=== PATIENT | female | born 1960 | race Caucasian/White ===

== ENCOUNTER 2019-01-13 09:35 | Day surgery (SDC) | payer SELFPAY ==
[2019-01-11 16:02] VITALS: BMI 26.4
--- NOTE | 2019-01-12 11:20 | HP ---
DATE OF ADMISSION: 01/13/2019 DATE OF DICTATION: 01/12/2019 COMPLAINTS: 1. Abdominal aesthetic deformity. 2. Large breasts. HISTORY: A 58-year-old female requesting abdominal aesthetic procedure for her abdomen and breasts. She has been active, vigilant in controlling her weight as well as regular exercises. For the last 1 year she has been very diligent and at this stage she has reached her maximum weight. She has lost 70 pounds over the last 1 year and is requesting to undergo abdominoplasty as well as breast reduction and a lift. PAST MEDICAL HISTORY: She has history of osteoarthritis, lower back pain. She has been using methotrexate for her recently inflammatory condition which has been diagnosed. Pertinent negatives: She has had unsupervised dieting, but there is no history of vomiting, no history of liposuction, no history of nausea. For osteoarthritis, she has been under care with Dr. Robertson since October 2018, and this is her 4th week where she has been on prednisone when she was seen in the office. Past history relevant for bipolar disorder, hypertension (which has been reduced since her loss of weight and exercise). PAST SURGICAL HISTORY: Positive for appendectomy in the , section x4 (1987, 1988, 1992 and 2001), sigmoid colon resection, colostomy in , gallbladder surgery in 1996 and 1997. MEDICATIONS: Ibuprofen 100 mg chewable, methotrexate 2.5 mg once a day for inflammation, prednisone 2.5 mg once a day. ALLERGIES: LEVAQUIN, BACTRIM, and CODEINE. SOCIAL HISTORY: Nonsmoker, quit smoking in 2002. FAMILY HISTORY: Positive for mother with CVA. Father of diverticulitis. Brother has Crohn disease, 21 years ago was diagnosed and has melanoma of the mouth. PHYSICAL EXAMINATION: General: A 58-year-old pleasant female. HEENT: Pupils are equal and reacting. Neck: No lymphadenopathy. Chest: Has good air entry. Breasts: D size, with ptosis grade 4. Nipples asymmetrical. Bilateral asymmetry of the breasts. Abdomen: Previous scar tissue present in the section. Significant laxity of skin and subcutaneous tissue bilaterally. No masses. Extremities: No calf tenderness. Peripheral pulses present. Rectal: Examination deferred. DIAGNOSES: 1. Aesthetic deformity of the abdomen, including skin, subcutaneous tissue and muscle. 2. Grade 4 ptosis, breasts enlarged, D size. PLAN OF CARE: 1. Reduction of both breasts with mastopexy, lifting. 2. Abdominoplasty with liposuction and repair of abdominal diastasis and removal of excess skin and fat. Risks have been discussed with the patient, including and not limited to vein thrombosis, infection, dehiscence, asymmetry, numbness, including pulmonary pneumonia. All questions have been answered. Patient has been seen at least 3 times before the surgery was planned. Surgery is planned for January 13 at [facility]. Patient has been told that requesting a 2nd procedure will extend the length of time, with higher risks. Patient is aware of it. RONNI PARSONS M.D. [id number]
[2019-01-13 10:01] LABS: EPI CELLS 8.6 /HPF (0-5/HPF); URINE APPEARANCE CLEAR; URINE BACTERIA 17.3 /hpf (NEGATIVE); URINE BILIRUBIN NEGATIVE (NEGATIVE); URINE CASTS 4 /lpf (0-8); URINE COLOR YELLOW; URINE GLUCOSE (UA) NEGATIVE (NEGATIVE); URINE KETONE NEGATIVE (NEGATIVE); URINE LEUK ESTERASE 3+ (NEGATIVE); URINE NITRITE NEGATIVE (NEGATIVE); URINE PROTEIN NEGATIVE (NEGATIVE); URINE RBC 1 /hpf (0-4); URINE UROBILINOGEN 0.2 mg/dL (0.2-1.0); URINE WBC 15 /hpf (0-5)
[2019-01-13] MEDS ORDERED: SUMAtriptan SUCCINATE 50 MG TABLET PO ONE ×2 (10:20→13:15)
[2019-01-13] MEDS ORDERED: ROPIVACAINE HCL 0.5% 30ML VIAL ONE (11:56)
[2019-01-13] MEDS ORDERED: MIDAZOLAM HCL 2 MG/2 ML SINGLE DOSE VIAL ONE ×2 (11:57)
[2019-01-13] MEDS ORDERED: SCOPOLAMINE HYDROBROMIDE 1 PATCH PATCH.TD72 ONE (12:01)
[2019-01-13] MEDS ORDERED: LIDOCAINE HCL 1%, 10 MG/ML (20ML VIAL) ONE (12:03)
[2019-01-13] MEDS ORDERED: EPINEPHrine/PF 1 MG/1 ML (1:1,000) AMPULE ONE (12:03)
[2019-01-13] MEDS ORDERED: LIDOCAINE HCL/PF 2% SDV 5ML VIAL ONE ×3 (12:37→18:55)
[2019-01-13] MEDS ORDERED: PROPOFOL 20 ML ONE ×6 (12:38→19:46)
[2019-01-13] MEDS ORDERED: ROCURONIUM BROMIDE 50 MG/5 ML VIAL ONE (12:38)
[2019-01-13] MEDS ORDERED: ceFAZolin SODIUM 1 GM VIAL ONE (12:49)
[2019-01-13] MEDS ORDERED: ceFAZolin SODIUM 1 GM VIAL IVPB ONE (12:50)
[2019-01-13] MEDS ORDERED: DEXAMETHASONE SOD PHOSPHATE 4 MG/1 ML VIAL ONE ×2 (13:06→18:54)
[2019-01-13] MEDS ORDERED: DEXMEDETOMIDINE HCL 200 MCG/2 ML IVPB ONE (15:50)
[2019-01-13] MEDS ORDERED: CALCIUM CHLORIDE 1 GM/10 ML *DISP.SYRIN ONE (17:40)
[2019-01-13] MEDS ORDERED: ePHEDrine SULFATE 50 MG/1 ML AMPULE ONE ×2 (18:29)
[2019-01-13] MEDS ORDERED: SODIUM CHLORIDE 0.9% P/F 10 ML VIAL IJ ONE (18:30)
[2019-01-13] MEDS ORDERED: NOREPINEPHRINE BITARTRATE 4 MG/4 ML ML IV ONE (18:57)
[2019-01-13] MEDS ORDERED: KETOROLAC TROMETHAMINE 30 MG/1 ML VIAL ONE (18:59)
[2019-01-13] MEDS ORDERED: ONDANSETRON 4 MG/2 ML VIAL IVPUSH PRN ×2 (20:17→21:51)
[2019-01-13] MEDS ORDERED: ACETAMINOPHEN 1000 MG/100 ML VIAL (NON FORMULARY) IVPB ONE ×2 (20:20→21:51)
[2019-01-13] MEDS ORDERED: LACTATED RINGERS SOLUTION 1,000 ML IV SCH ×2 (20:30→21:51)
[2019-01-13] MEDS ORDERED: IBUPROFEN 600 MG TABLET (FP) PO PRN (22:03)
--- NOTE | 2019-01-14 01:22 | OP ---
DATE OF OPERATION: 01/13/2019 PREOPERATIVE DIAGNOSES: 1. Abdominal wall diastasis. 2. Lipodystrophy. 3. Bilateral breast ptosis and macromastia. PROCEDURE: 1. Abdominoplasty with plication of rectus muscle for diastasis recti. 2. Liposuction. 3. Bilateral breast reduction using central mound technique for ptosis and minimal reduction. SURGEON: Ronni Parsons MD ANESTHESIA: General. Infiltration of 1% lidocaine plus 1 ampule of epinephrine 3 L for liposuction. ANESTHESIOLOGIST: Rebecca Basurto MD ESTIMATED BLOOD LOSS: Minimal, less than 100 mL. HISTORY: Patient is a 58-year-old who has lost considerable weight, about 100 pounds in the last year through exercise and diet control. She now requests improvement of her abdomen. She also requests elevation of her breasts and a small reduction. DESCRIPTION OF PROCEDURE: Patient was brought to the operating room and transferred onto the table. Markings had been carried out in the holding area. General anesthesia was administered. Timeout was performed in the standard manner. Skin prepped using betadine and draped in the standard aseptic manner. A 10-scalpel blade was used to dissect the skin starting from the pubic area. Margin was placed at 7 cm from the mons. Lisy tension lipectomy markings had been performed extending to the anterior superior spine going vertically 4 cm, including the lower panniculus. Dissection proceeded by elevation of flaps. Patient had previous significant scars. Adhesions were significant in the mons area. This had to be carefully dissected, avoiding any incision within the fascia and any peritoneal entrance. After the flap was elevated, it was dissected in the cephalic direction. Umbilicus was detached from the skin and flaps were proceeded to the epigastric area. Several perforations were encountered. Each one was carefully burnt with good hemostasis using electrocautery. Dissection in the midline was kept to the area of the rectus diastasis. Significant diastasis was noted. No hernia was noted. Wound was irrigated and bleeding was controlled. Using 0 Sycamore-Parker running suture was started from the umbilicus towards the epigastrium. Plication was performed at the rectus fascia level. Two layers were done, first layer was running and second layer was running and interrupted. A similar procedure proceeded from umbilicus to the pubic area, again 2 layers were done with similar suture. Umbilicus was detached and left onto its stalk. Flaps were then advanced. Excess skin was removed. Patient's body habitus was significantly longer in the area between the lower costal margins and the pubic area. Thus, the entire skin could not be excised. A midline portion of the flaps was repaired in a vertical manner. Two SAVANNA drains were placed, one on each side of the umbilicus. Placed vertically and brought out separately through stab incisions in the mons area. Repair using 2-0 Biosyn interrupted sutures were applied in the Deniz fascia. Next, a running suture of 3-0 Biosyn was done for closure of flaps. Umbilicus was then brought out through its new location and it was repaired intact using 4-0 Vicryl and a running 4-0 Prolene. Next, second stage of surgery was bilateral mastopexy and reduction. Markings had been carried out in the holding area. New nipple site was kept at 24 cm from the midsternal point. Distance between the nipple areola and inframammary fold was 16 cm on the left, 14 cm on the right. Central mound technique was used. Medial breast tissue and lateral breast tissue was excised on the lateral side. Some amount of bleeding was present. Significant fibrosis was noted. No abnormal tumors were noted. Breast tissue was mostly fatty. After the excision of the central portion, lower portion, and the medial portion, the central mons was then advanced to the new location and brought out through the most superior border. Skin was then de-epithelialized. The new nipple area was then sutured in 2 layers using 3-0 Biosyn and running sutures were applied. Similar procedure was carried out on the left breast. The left breast is significantly larger than the right, thus more amount of breast tissue was excised. Again, no abnormal masses were noted. Breast was mostly fatty and grade 4 ptosis was present in both with asymmetry. At the end of the procedure, circulation to both nipples and areola were intact. Flaps were then closed in 2 layers using 3-0 Biosyn. No SAVANNA drains were applied. Dressing consisting of Steri-Strips, Xeroform, and bacitracin were applied. Liposuction solution consisting of 1 L of normal saline with 20 mL of 1% lidocaine plus an ampule of epinephrine was injected into the subcutaneous fat and vacated for half an hour before liposuction of the upper and lower abdomen and the flanks was carried out using a 2 mm cannula. MicroAire machine was used for liposuction. Dressing consisted of Xeroform, Steri-Strips, and Dermabond. Fluffs were applied later to use a binder. A bra was applied. Patient was then sent to the recovery room in a satisfactory condition. Patient was given 2 g of Ancef prior to starting the procedure. SCDs and FRANCISCO hose were also used during the procedure. Patient is HYPERSENSITIVE TO NARCOTICS. Prior to bringing the patient to the operating room, blocks were given at the rib level in the intercostal nerves. This was done by Dr. Basurto under ultrasound control. Patient was sent to the recovery room in satisfactory condition. RONNI PARSONS M.D. [id number]
[2019-01-14 06:35] VITALS: BP 101/62; PULSE 74; TEMP 99.1
--- NOTE | 2019-01-14 08:27 | PN ---
Progress Note (short form) - Note Progress Note: Anesthesia POD#1 S/P Abdominoplasty and Bilateral breast lift under GA VSS,headache came back,no N/V,pain is bearable. The antinausea medication worked.Patient is glad. Rebecca Basurto MD.
[2019-01-14] MEDS ORDERED: HEPARIN NA (PORCINE) 5,000 UNITS/ML 1ML VIAL SQ SCH ×2 (10:00)
== END 2019-01-14 11:17 | disposition home or self-care (01) ==
LOC: JASUSAT 09:35 → J8W 21:49 → JASUSAT 01-14 11:17
PROVIDERS: ATTEND Plastic Surgery
PROC: 0H0V0ZZ Alteration of Bilateral Breast, Open Approach (ICD-10-PCS; 2019-01-13)
PROC: 0J083ZZ Alteration of Abdomen Subcutaneous Tissue and Fascia, Percutaneous Approach (ICD-10-PCS; 2019-01-13)
PROC: 0J080ZZ Alteration of Abdomen Subcutaneous Tissue and Fascia, Open Approach (ICD-10-PCS; principal; 2019-01-13 11:00)
DX: M62.08 Separation of muscle (nontraumatic), other site (principal); N62 Hypertrophy of breast; E88.1 Lipodystrophy, not elsewhere classified
CPT/HCPCS: 81003; 86850; 86900; 86901; 94760; J1644

== ENCOUNTER 2019-06-21 09:07 | Day surgery (SDC) | payer SELFPAY ==
--- NOTE | 2019-06-20 15:34 | HP ---
DATE OF ADMISSION: 06/21/2019 CHIEF COMPLAINT: A 58-year-old female underwent abdominoplasty, bilateral breast reduction, and liposuction in December of 2018. Patient requesting further liposuction for the abdomen. HISTORY OF PRESENT ILLNESS: A 58-year-old underwent abdominoplasty as well as liposuction including breast reduction December of 2018. Patient has been following in the office on a regular basis. She has been wearing the binder as suggested. The patient requests further liposuction on the abdomen upper and lower area. She also requested dog ears on the lower incision line along the hip area to be excised and repaired. She also requests correction of deviation left nipple areolar. PAST HISTORY: Relevant for the following conditions. Medically she has had history of bipolar disease, hypertension which she has been able to keep it under control by losing weight and exercises, history of osteoarthritis treated by with prednisone in the past. SURGICAL HISTORY: Positive for section, 1987, 1988, 1992, and 2001. History of colon, for which she underwent colostomy, sigmoid colon, in 2009. Gallbladder, cholecystectomy in 1996 and 1997, possibly; unsure of the year. History of bipolar disorder. MEDICATION: Methotrexate sodium 2.5 mg once a day for inflammatory condition, prednisone 0.5 mg once a day, ibuprofen 100 mg chewable as needed. ALLERGIES: LEVAQUIN, BACTRIM, CODEINE. SOCIAL HISTORY: At present nonsmoker. She stopped in 2002. FAMILY HISTORY: Positive CVA mother. Father of diverticulitis. Brother has Crohn's disease diagnosed 21 years ago, also had melanoma on the . PHYSICAL EXAMINATION: Focused evaluation, abdomen and breast. Scars noted along the breast midline and inframammary area from previous reduction left nipple areola slightly deviated laterally, requires correction once the swelling and inflammation has subsided, possibly within the next 6 months. Abdominal area, lipodystrophy mostly in the upper epigastric area. Umbilicus in midline. Healing well. Lower incision line healing well, has small dog ears on each side from excess tissue which will require de-fattening and repair. Lower extremities have venous insufficiency. Abdomen is otherwise soft and nontender. No masses palpable. Chest shows good air entry. Cardiac regular sinus rhythm. No calf tenderness in both legs. No other masses palpable. PLAN OF CARE: 1. Liposuction upper and lower abdomen. 2. Excision of dog ears and repair. 3. Correction of left nipple areolar deviation to be delayed until secondary healing is completed. PLAN OF PROCEDURE: On June 21, 2019, at [facility], patient will be receiving an oral pain medication and Xanax. Procedure will be done under local anesthetic. Patient is aware of the procedure. All questions had been answered during the office visit. Final diagnosis: Lipodystrophy secondary requires further liposuction. RONNI PARSONS M.D. [id number]
[2019-06-20 17:09] VITALS: BMI 26.6
[2019-06-21] MEDS ORDERED: BACITRACIN 15 GM TUBE TOPICAL OINTMENT ONE ×2 (09:15→12:33)
[2019-06-21] MEDS ORDERED: EPINEPHrine/PF 1 MG/1 ML (1:1,000) AMPULE ONE (09:15)
[2019-06-21] MEDS ORDERED: LIDOCAINE HCL 1%, 10 MG/ML (20ML VIAL) ONE (09:15)
[2019-06-21] MEDS ORDERED: ROCURONIUM BROMIDE 50 MG/5 ML SYRINGE ONE (09:42)
[2019-06-21] MEDS ORDERED: PROPOFOL 20 ML ONE (09:43)
[2019-06-21] MEDS ORDERED: MIDAZOLAM HCL 2 MG/2 ML SINGLE DOSE VIAL ONE (09:43)
[2019-06-21] MEDS ORDERED: LIDOCAINE HCL/PF 2% SDV 5ML VIAL ONE (09:46)
--- NOTE | 2019-06-21 10:28 | HP ---
Admitting History and Physical - Admission Chief Complaint: Excess fat abdomen, Bulges lower abdomen post Surgery History Source: Patient (Patient under went Cosmetic Surgery December 2018,and Bilateral Breast reduction , she requests futher reduction of abdominal fat and removal of excess fold along the suture line in lower abdomen) - Past Medical History ...LMP Comment: LMP 9 YEARS AGO - Smoking History Smoking history: Former smoker Have you smoked in the past 12 months: No If you are a former smoker, when did you quit?: 16 YEARS AGO - Alcohol/Substance Use Hx Alcohol Use: No Home Medications - Allergies Allergies/Adverse Reactions: Allergies Allergy/AdvReac Type Severity Reaction Status Date / Time hydrocodone bitartrate Allergy Severe VOMITING,SEVERE Verified 06/21/19 10:16 [From Vicodin] HEADACHE levofloxacin [From Levaquin] Allergy Severe FACIAL Verified 06/21/19 10:16 SWELLING morphine Allergy Severe LIVER Verified 06/21/19 10:16 PAIN/[employer] oxycodone Allergy Severe VOMITING,SEVERE Verified 06/21/19 10:16 MIGRAINE Sulfa (Sulfonamide Allergy Severe Swelling Verified 06/21/19 10:16 Antibiotics) - Home Medications Home Medications: Ambulatory Orders Folic Acid 1 mg PO DAILY 01/11/19 Methotrexate [Mexate -] 4 tab PO WEEKLY 01/11/19 Cyanocobalamin [Vitamin B12 -] 500 mcg PO DAILY 06/20/19 Docusate Sodium [Stool Softener] 100 mg PO DAILY 06/20/19 Magnesium Oxide/Magnesium [Magnesium 300 mg Capsule] 325 mg PO DAILY 06/20/19 Turmeric/Turmeric Root Extract [Turmeric] 450 mg PO DAILY 06/20/19 Acetaminophen [Pain Relief] 650 mg PO ONCE 06/21/19 Alprazolam [Xanax] 0.25 mg PO ONCE 06/21/19 Sumatriptan Succinate [Imitrex -] 50 mg PO ONCE 06/21/19 Physical Examination Vital Signs: Vital Signs Temperature 98.4 F 06/21/19 10:21 Pulse Rate 73 06/21/19 10:21 Respiratory Rate 16 06/21/19 10:21 Blood Pressure 131/77 06/21/19 10:21 O2 Sat by Pulse Oximetry (%) 100 06/21/19 10:21
[2019-06-21] MEDS ORDERED: ceFAZolin SODIUM 1 GM VIAL ONE (11:03)
[2019-06-21] MEDS ORDERED: ceFAZolin SODIUM 1 GM VIAL IVPB ONE ×2 (11:04→11:10)
[2019-06-21] MEDS ORDERED: LIDOCAINE 1%-EPI 1:100,000 30 ML MDV IJ ONE ×2 (11:18→11:23)
[2019-06-21 14:05] VITALS: BP 105/62; PULSE 71; TEMP 99.5
--- NOTE | 2019-06-21 15:47 | OP ---
DATE OF OPERATION: DATE OF DICTATION: 06/21/2019 PREOPERATIVE DIAGNOSES: 1. Bilateral excessive scar tissue and fat, lower abdomen. 2. Lipodystrophy. POSTOPERATIVE DIAGNOSES: 1. Bilateral excessive scar tissue and fat, lower abdomen. 2. Lipodystrophy. PROCEDURE DONE: 1. Excision of bilateral excess tissue and fat, lower abdomen. 2. Repair. 3. Attempted liposuction of abdomen. SURGEON: Ronni Parsons MD ANESTHESIA: Local 1% lidocaine with epinephrine, and liposuction solution consisting of 20 mg of 2% lidocaine plain and 1 ampule of epinephrine. PROCEDURE: The patient was placed in a supine position. Vital signs were stable. Markings were carried out in the holding area. The procedure had been explained to the patient. Skin was prepped with Betadine solution and then draped in the standard manner. Liposuction solution was injected into the upper abdomen. Patient was under local anesthesia. She was unable to tolerate the fluid injection into the subcutaneous tissue. Anesthesiologist was called to possibly do the procedure under general anesthesia. This had to be declined, as patient had not been preop'd for general anesthesia. Patient was able to understand the reason why the procedure would have to be aborted. She wanted another attempt for suctioning. Another attempt was made for liposuction using a 4-mm cannula with MicroAire technology. Just a few millimeters of fat was aspirated. Patient could not tolerate it. At this time, it was decided not to proceed with the liposuction. Excess scar tissue in the lower abdomen and bilaterally were excised using 15 and 10 blade, followed by excision of fat and subcutaneous tissue. Repair was carried out in 2 layers, 5-0 Vicryl and 5-0 Prolene. Dressings were applied, consisted of Xeroform and bacitracin. Upper abdomen area compression dressing was applied followed by the binder. Patient was then sent to recovery room, knowing that the procedure she had come in for was not completed. At the time, bringing her to [facility], her vital signs were stable, blood pressure came down to 102/67. RONNI PARSONS M.D. [id number]
== END 2019-06-21 14:00 | disposition home or self-care (01) ==
LOC: JASU-SURG 09:07
PROVIDERS: ATTEND Plastic Surgery